=== PATIENT | female | born 1940 | race Caucasian/White ===

== ENCOUNTER 2017-06-23 15:47 | Inpatient (IN) | payer MEDICARE, MEDICAID ==
[2017-06-23 15:52] VITALS: BMI 25.4
--- NOTE | 2017-06-23 16:02 | C.PDOC ---
History Of Present Illness 77F biba for ams. she was found sitting down slumped forward outside of a [employer]. bg 27 in traige- pt given IV D50 and woke up immediately. she remembers taking her insulin tresiba but has not eaten since breakfast. she went to the pharmacy to hot die picker medications and then does not remember what happened after that. she has no complaints currently. Time Seen by Provider: 06/23/17 16:00 Chief Complaint (Nursing): Altered Mental Status Past Medical History Vital Signs: Last Vital Signs Temp 91.6 F L 06/23/17 16:37 Pulse 70 06/23/17 16:37 Resp 18 06/23/17 16:37 BP 162/69 H 06/23/17 16:37 Pulse Ox 99 06/23/17 16:37 - Medical History PMH: Dementia, Diabetes, HTN Surgical History: Appendectomy Family History: States: Other Other Family History: nc - Social History Hx Tobacco Use: No Hx Alcohol Use: No Hx Substance Use: No - Immunization History Hx Influenza Vaccination: Yes Hx Pneumococcal Vaccination: Yes Review Of Systems Constitutional: Negative for: Fever, Chills, Weakness, Malaise Eyes: Negative for: Vision Change Cardiovascular: Negative for: Chest Pain Respiratory: Negative for: Cough, Shortness of Breath Gastrointestinal: Negative for: Nausea, Vomiting, Abdominal Pain Genitourinary: Negative for: Dysuria Neurological: Negative for: Weakness, Numbness, Headache Physical Exam - Physical Exam Appears: Well, Non-toxic, No Acute Distress Skin: Warm, Dry Head: Atraumatic Eye(s): bilateral: PERRL, EOMI Nose: No Epistaxis Oral Mucosa: Moist Tongue: No Swelling Neck: Normal ROM Cardiovascular: Rhythm Regular Respiratory: No Decreased Breath Sounds, No Accessory Muscle Use, No Rales, No Rhonchi, No Stridor, No Wheezing Gastrointestinal/Abdominal: Soft, No Tenderness, No Distention Extremity: No Swelling Neurological/Psych: Oriented x3, Normal Cranial Nerves, Normal Motor, Normal Sensation, Other (no focal deficits) ED Course And Treatment - Laboratory Results Result Diagrams: 06/23/17 16:15 06/23/17 16:15 O2 Sat by Pulse Oximetry: 98 Medical Decision Making Medical Decision Makinpm pt hypoglycemic again. improved w D50. D5 gtt started. will admit. Disposition - Disposition Disposition: HOSPITALIZED Disposition Time: 18:01 Condition: STABLE Forms: [facility] (Welsh) - Clinical Impression Clinical Impression: Hypoglycemia
[2017-06-23 16:19] LABS: BASO # 0.1 K/uL (0.0-0.2); BASO % 0.7 % (0.0-2.0); EOS # 0.5 K/uL (0.0-0.7); EOS % 3.1 % (0.0-4.0); HEMOGLOBIN 12.1 g/dL (11.0-16.0); LYMPH # 2.9 K/uL (1.0-4.3); LYMPH % 16.1 % (20.0-40.0); MEAN CELL VOLUME 87.8 fL (81.0-99.0); MEAN CORPUSCULAR HEMOGLOBIN 28.1 pg (27.0-31.0); MEAN PLATELET VOLUME 9.4 fL (7.2-11.7); MONO # 1.3 K/uL (0.0-0.8); MONO % 7.4 % (0.0-10.0); NEUT # 12.9 K/uL (1.8-7.0); NEUT % 72.7 % (50.0-75.0); NRBC % 0.1 % (0.0-2.0); RBC 4.32 Mil/uL (3.80-5.20); RED CELL DISTRIBUTION WIDTH 14.5 % (11.5-14.5); WHITE BLOOD COUNT 17.7 K/uL (4.8-10.8)
[2017-06-23 16:41] LABS: ALB/GLOB RATIO 1.3 (1.0-2.1); ALT/SGPT 29 U/L (9-52); AST/SGOT 27 U/L (14-36); BLOOD UREA NITROGEN 18 mg/dL (7-17); CALCIUM 9.6 mg/dl (8.6-10.4); GFR AFRICAN-AMERICAN > 60; GFR NON-AFRICAN AMERICAN > 60
[2017-06-23] MEDS ORDERED: Dextrose 50% SYRINGE Inj (50 ml) IV STA (17:53)
[2017-06-23] MEDS ORDERED: Dextrose 50% VIAL Inj (50 ml) IV ONE (17:58)
[2017-06-23] MEDS: Dextrose 5%/0.9% NS 1,000 ML IV SCH (18:20)
[2017-06-23 21:04] LABS: BLOOD UREA NITROGEN 16 mg/dL (7-17); CALCIUM 9.4 mg/dl (8.6-10.4); GFR AFRICAN-AMERICAN > 60; GFR NON-AFRICAN AMERICAN 54
[2017-06-23] MEDS ORDERED: (Novolog) Insulin Aspart, Recombinant 100 u/ml 10 ml vial SC SCH (22:00)
[2017-06-24 04:14] LABS: SQUAMOUS EPITHIAL < 1 /hpf (0-5); URINE BILIRUBIN NEGATIVE (NEGATIVE); URINE BLOOD NEGATIVE (NEGATIVE); URINE CLARITY Clear (Clear); URINE COLOR Straw (YELLOW); URINE GLUCOSE (UA) 2+ mg/dL (Normal); URINE LEUKOCYTE ESTERASE NEG Leu/uL (Negative); URINE NITRATE NEGATIVE (NEGATIVE); URINE PROTEIN NEGATIVE (NEGATIVE); URINE UROBILINOGEN NORMAL mg/dL (0.2-1.0)
[2017-06-24] MEDS: Dextrose 5%/0.9% NS 1,000 ML IV SCH ×3 (06:27→17:24)
[2017-06-24 06:34] LABS: BASO # 0.1 K/uL (0.0-0.2); BASO % 0.8 % (0.0-2.0); EOS # 0.1 K/uL (0.0-0.7); EOS % 1.5 % (0.0-4.0); HEMOGLOBIN 11.2 g/dL (11.0-16.0); LYMPH # 2.1 K/uL (1.0-4.3); LYMPH % 22.7 % (20.0-40.0); MEAN CELL VOLUME 87.2 fL (81.0-99.0); MEAN CORPUSCULAR HEMOGLOBIN 29.4 pg (27.0-31.0); MEAN CORPUSCULAR HGB CONC 33.7 g/dL (33.0-37.0); MEAN PLATELET VOLUME 9.9 fL (7.2-11.7); MONO # 0.8 K/uL (0.0-0.8); MONO % 8.6 % (0.0-10.0); NEUT # 6.1 K/uL (1.8-7.0); NEUT % 66.4 % (50.0-75.0); RBC 3.82 Mil/uL (3.80-5.20); RED CELL DISTRIBUTION WIDTH 14.7 % (11.5-14.5); WHITE BLOOD COUNT 9.3 K/uL (4.8-10.8)
[2017-06-24] MEDS: (Novolog) Insulin Aspart, Recombinant 100 u/ml 10 ml vial SC SCH ×4 (07:08→21:16)
[2017-06-24 07:43] LABS: ALBUMIN 3.3 g/dL (3.5-5.0); ALT/SGPT 25 U/L (9-52); AST/SGOT 23 U/L (14-36); BLOOD UREA NITROGEN 16 mg/dL (7-17); CALCIUM 8.8 mg/dl (8.6-10.4); GFR AFRICAN-AMERICAN > 60; GFR NON-AFRICAN AMERICAN > 60; HDL CHOLESTEROL 31 mg/dL (30-70)
[2017-06-24 07:48] LABS: ALB/GLOB RATIO 1.3 (1.0-2.1)
--- NOTE | 2017-06-24 07:49 | RAD ---
HISTORY: hypoglycemia COMPARISON: Portable chest 04/01/2016. FINDINGS: LUNGS: No active pulmonary disease. PLEURA: No significant pleural effusion identified, no pneumothorax apparent. CARDIOVASCULAR: Upper limits normal cardiac silhouette. No pulmonary venous congestion evident. OSSEOUS STRUCTURES: No significant abnormalities. VISUALIZED UPPER ABDOMEN: Normal. OTHER FINDINGS: None. IMPRESSION: Upper limits normal cardiac silhouette. No pulmonary vascular congestion. No interval infiltrate, pleural effusion or pneumothorax identified.
[2017-06-24 07:54] LABS: LDL CHOLESTEROL 42 mg/dL (0-129)
[2017-06-24] MEDS: Enoxaparin 40 mg Syringe SC SCH (10:19)
--- NOTE | 2017-06-24 11:01 | CARD ---
APPROVED REPORT EKG Measurement Heart [id number] <Conclusion> Normal sinus rhythm Possible Left atrial enlargement Cannot rule out Anterior infarct, age undetermined Abnormal ECG
--- NOTE | 2017-06-24 12:16 | CON ---
DATE: ENDOCRINOLOGY CONSULTATION LOCATION: In room 652. HISTORY OF PRESENT ILLNESS: This is [id number] female with known history of type 2 insulin requiring diabetes, currently on Tresiba insulin and also metformin therapeutic, doses are not known at this time and presents here with loss of consciousness, apparently found in the [place] area, and glucose levels were actually below 20 mg/dL with dramatic response and awakening with the bolus injections of dextrose infusions as given. At the time of the evaluation, she has been unable to give the exact dosing of her Tresiba insulin pen dosing regimen at this time. She has also been taking metformin twice a day as noted. PAST MEDICAL HISTORY: As mentioned above, history of type 2 insulin requiring diabetes, on the combination therapy as mentioned, history of hypertension and dyslipidemia. There is an apparent history also of dementia, again the nature and the degree of dementia is not known at this time pending the family members' giving of details of above. FAMILY HISTORY: Positive for hypertension and diabetes. SOCIAL HISTORY: The patient has supportive family. No known substance use. REVIEW OF SYSTEMS: As mentioned above. Admits to sudden onset of generalized body weakness with severe bouts of dizziness and lightheadedness just prior to the syncope and the brief bouts of unresponsiveness. She admits to taking her insulin this morning and apparently did not have any meals thereafter, and has no recollection of exactly what happened after that event this morning. No chest pain, palpitation or PND. Her oral intake has been variable with occasional nausea, dyspepsia, and vague upper abdominal pains, also admits to habitual constipation. PHYSICAL EXAMINATION: GENERAL: This is an average-built female, in no apparent distress, awake at this time, also still slightly confused and hypersomnolent as noted. VITAL SIGNS: Blood pressure 160/90, pulse of 70 beats per minute and regular, temperature 94, respirations 20. Height is 4 feet 11 inches, weight is 125 pounds. HEENT: Head normocephalic. Eyes anicteric with pink conjunctivae. Funduscopy not possible at this time. Ears, nose, and throat otherwise normal. NECK: Supple. Thyroid gland is normal in size. No carotid bruits or any cervical adenopathy. CARDIOPULMONARY: Some adynamic precordium. S1 and S2 is rapid and regular. LUNGS: Clear to auscultation. ABDOMEN: Flat, soft with positive bowel sounds. EXTREMITIES: No peripheral edema, pulses are +2 bilaterally. LABORATORY DATA: Her CBC, WBC 17.7, hemoglobin of 12, hematocrit of 37, MCV 87, platelets 316. The initial glucose was less than 20 mg/dL. Chemistry showed a BUN of 16, sodium 135, potassium 4.4, chloride 99, CO2 of 26, glucose 80 and creatinine 1.0. The subsequent glucose is 96 mg/dL. Her hemoglobin A1c is 9.0%, which is really elevated and indicative of suboptimal metabolic control of her diabetic condition even prior to this admission despite the current insulin regimen and oral hypoglycemic therapy as given. ASSESSMENT: This is a 77-year-old female with symptomatic hypoglycemia presenting here with loss of consciousness and apparent omission of her meals today after the administration of Tresiba insulin pen as given and developed associated neuroglycopenic and hyperadrenergic manifestations on the same, reversed by D50 bolus injections and dextrose infusions as given. PLAN OF MANAGEMENT: We will continue the dextrose infusion overnight to observe her glycemic fluctuations thereof, and as her glucose levels evolve tomorrow, then we will start her back on a basal and bolus insulin drug combination to optimize metabolic control and/or basal insulin with oral hypoglycemic therapy as indicated. Only the supervening glycemic fluctuations will determine the need for the aforementioned modalities of treatment thereof. We will obtain serial chemistries and supplement accordingly as needed. Baseline thyroid studies and lipid panel will be ordered. With the apparent history of dementia, we will be very careful to actually give her multiple doses of insulin and we will give her a shorter acting basal insulin such as Levemir together with a combination of oral hypoglycemic therapy as dictated. We will follow and advise accordingly. Jaqueline Tamayo MD
--- NOTE | 2017-06-24 12:37 | CP.PCM.HP ---
History of Present Illness - History of Present Illness History of Present Illness: This is a 77 years old female with Past Medical History significant for Type II Diabetes Mellitus, Hypertension and Hyperlipidemia. Patient found unconscious outside [employer], brought to ER/Hospital for further evaluation. Patient immediately woke up after administration of D50% Dextrose. Patient states that she administered Novolog 10 units but forgot to eat. Patient denies headache, chest pain, shortness of breath, abdominal pain or diarrhea. Present on Admission - Present on Admission Any Indicators Present on Admission: Yes History of Uncontrolled Diabetes: Yes Past Patient History - Infectious Disease Hx of Infectious Diseases: None - Past Medical History & Family History Past Medical History?: Yes - Past Social History Smoking Status: Never Smoked - CARDIAC Hx Hypertension: Yes - PULMONARY Hx Respiratory Disorders: No - NEUROLOGICAL Hx Dementia: Yes - HEENT Hx Cataracts: Yes (both eyes) - RENAL Hx Chronic Kidney Disease: No - ENDOCRINE/METABOLIC Hx Diabetes Mellitus Type 2: Yes - HEMATOLOGICAL/ONCOLOGICAL Hx Blood Disorders: No - INTEGUMENTARY Hx Dermatological Problems: No - MUSCULOSKELETAL/RHEUMATOLOGICAL Hx Musculoskeletal Disorders: No Hx Falls: No - GASTROINTESTINAL Hx Gastrointestinal Disorders: No - GENITOURINARY/GYNECOLOGICAL Hx Genitourinary Disorders: No - PSYCHIATRIC Hx Psychophysiologic Disorder: No Hx Substance Use: No - SURGICAL HISTORY Hx Appendectomy: Yes - ANESTHESIA Hx Anesthesia: Yes Hx Anesthesia Reactions: No Hx Malignant Hyperthermia: No Has any member of the family had a problem w/ anesthesia?: No Meds Allergies/Adverse Reactions: Allergies Allergy/AdvReac Type Severity Reaction Status Date / Time No Known Allergies Allergy Verified 06/23/17 15:51 Physical Exam - Head Exam Head Exam: ATRAUMATIC, NORMAL INSPECTION, NORMOCEPHALIC - Eye Exam Eye Exam: EOMI, Normal appearance, PERRL - ENT Exam ENT Exam: Mucous Membranes Moist, Normal Exam - Neck Exam Neck exam: Positive for: Full Rom, Normal Inspection - Respiratory Exam Respiratory Exam: Clear to Auscultation Bilateral, NORMAL BREATHING PATTERN - Cardiovascular Exam Cardiovascular Exam: REGULAR RHYTHM, +S1, +S2 - GI/Abdominal Exam GI & Abdominal Exam: Normal Bowel Sounds, Soft - Extremities Exam Extremities exam: Positive for: full ROM, normal inspection - Back Exam Back exam: FULL ROM, NORMAL INSPECTION - Neurological Exam Neurological exam: Alert, CN II-XII Intact, Oriented x3 - Psychiatric Exam Psychiatric exam: Normal Affect, Normal Mood - Skin Skin Exam: Intact, Normal Color Results - Vital Signs Recent Vital Signs: Last Vital Signs Temp 97.7 F 06/24/17 08:28 Pulse 94 H 06/24/17 08:28 Resp 20 06/24/17 08:28 BP 158/83 H 06/24/17 08:28 Pulse Ox 97 06/24/17 08:28 - Labs Result Diagrams: 06/24/17 06:23 06/24/17 06:23 Labs: Laboratory Results - last 24 hr 06/23/17 06/23/17 06/23/17 15:47 15:52 16:15 WBC 17.7 H D RBC 4.32 Hgb 12.1 Hct 37.9 MCV 87.8 MCH 28.1 MCHC 32.0 L RDW 14.5 Plt Count 315 MPV 9.4 Neut % (Auto) 72.7 Lymph % (Auto) 16.1 L Camp % (Auto) 7.4 Eos % (Auto) 3.1 Baso % (Auto) 0.7 Neut # 12.9 H Lymph # 2.9 Camp # 1.3 H Eos # 0.5 Baso # 0.1 Sodium Potassium Chloride Carbon Dioxide Anion Gap BUN Creatinine Est GFR ( Amer) Est GFR (Non-Af Amer) POC Glucose (mg/dL) < 20 L* < 20 L* Random Glucose Hemoglobin A1c Calcium Total Bilirubin AST ALT Alkaline Phosphatase Total Protein Albumin Globulin Albumin/Globulin Ratio Triglycerides Cholesterol LDL Cholesterol Direct HDL Cholesterol 25-OH Vitamin D Total Thyroxine (T4) TSH 3rd Generation Cortisol AM Sample Urine Color Urine Clarity Urine pH Ur Specific Wiseman Urine Protein Urine Glucose (UA) Urine Ketones Urine Blood Urine Nitrate Urine Bilirubin Urine Urobilinogen Ur Leukocyte Esterase Urine WBC (Auto) Urine RBC (Auto) Ur Squamous Epith Cells 06/23/17 06/23/17 06/23/17 16:15 16:26 17:50 WBC RBC Hgb Hct MCV MCH MCHC RDW Plt Count MPV Neut % (Auto) Lymph % (Auto) Camp % (Auto) Eos % (Auto) Baso % (Auto) Neut # Lymph # Camp # Eos # Baso # Sodium 138 Potassium 3.8 Chloride 103 Carbon Dioxide 24 Anion Gap 15 BUN 18 H Creatinine 0.9 Est GFR ( Amer) > 60 Est GFR (Non-Af Amer) > 60 POC Glucose (mg/dL) 180 H < 20 L* Random Glucose 20 L* D Hemoglobin A1c Calcium 9.6 Total Bilirubin 0.4 AST 27 ALT 29 Alkaline Phosphatase 64 Total Protein 7.1 Albumin 4.0 Globulin 3.0 Albumin/Globulin Ratio 1.3 Triglycerides Cholesterol LDL Cholesterol Direct HDL Cholesterol 25-OH Vitamin D Total Thyroxine (T4) TSH 3rd Generation Cortisol AM Sample Urine Color Urine Clarity Urine pH Ur Specific Wiseman Urine Protein Urine Glucose (UA) Urine Ketones Urine Blood Urine Nitrate Urine Bilirubin Urine Urobilinogen Ur Leukocyte Esterase Urine WBC (Auto) Urine RBC (Auto) Ur Squamous Epith Cells 06/23/17 06/23/17 06/23/17 17:51 18:21 19:56 WBC RBC Hgb Hct MCV MCH MCHC RDW Plt Count MPV Neut % (Auto) Lymph % (Auto) Camp % (Auto) Eos % (Auto) Baso % (Auto) Neut # Lymph # Camp # Eos # Baso # Sodium Potassium Chloride Carbon Dioxide Anion Gap BUN Creatinine Est GFR ( Amer) Est GFR (Non-Af Amer) POC Glucose (mg/dL) < 20 L* 188 H 97 Random Glucose Hemoglobin A1c Calcium Total Bilirubin AST ALT Alkaline Phosphatase Total Protein Albumin Globulin Albumin/Globulin Ratio Triglycerides Cholesterol LDL Cholesterol Direct HDL Cholesterol 25-OH Vitamin D Total Thyroxine (T4) TSH 3rd Generation Cortisol AM Sample Urine Color Urine Clarity Urine pH Ur Specific Wiseman Urine Protein Urine Glucose (UA) Urine Ketones Urine Blood Urine Nitrate Urine Bilirubin Urine Urobilinogen Ur Leukocyte Esterase Urine WBC (Auto) Urine RBC (Auto) Ur Squamous Epith Cells 06/23/17 06/23/17 06/23/17 20:50 21:34 22:00 WBC RBC Hgb Hct MCV MCH MCHC RDW Plt Count MPV Neut % (Auto) Lymph % (Auto) Camp % (Auto) Eos % (Auto) Baso % (Auto) Neut # Lymph # Camp # Eos # Baso # Sodium 135 Potassium 4.4 Chloride 99 Carbon Dioxide 26 Anion Gap 14 BUN 16 Creatinine 1.0 Est GFR ( Amer) > 60 Est GFR (Non-Af Amer) 54 POC Glucose (mg/dL) 96 Random Glucose 80 Hemoglobin A1c 9.0 H Calcium 9.4 Total Bilirubin AST ALT Alkaline Phosphatase Total Protein Albumin Globulin Albumin/Globulin Ratio Triglycerides Cholesterol LDL Cholesterol Direct HDL Cholesterol 25-OH Vitamin D Total Thyroxine (T4) TSH 3rd Generation Cortisol AM Sample Urine Color Urine Clarity Urine pH Ur Specific Wiseman Urine Protein Urine Glucose (UA) Urine Ketones Urine Blood Urine Nitrate Urine Bilirubin Urine Urobilinogen Ur Leukocyte Esterase Urine WBC (Auto) Urine RBC (Auto) Ur Squamous Epith Cells 06/24/17 06/24/17 06/24/17 04:07 06:23 06:23 WBC 9.3 RBC 3.82 Hgb 11.2 Hct 33.3 L MCV 87.2 MCH 29.4 MCHC 33.7 RDW 14.7 H Plt Count 276 MPV 9.9 Neut % (Auto) 66.4 Lymph % (Auto) 22.7 Camp % (Auto) 8.6 Eos % (Auto) 1.5 Baso % (Auto) 0.8 Neut # 6.1 Lymph # 2.1 Camp # 0.8 Eos # 0.1 Baso # 0.1 Sodium 132 Potassium 4.1 Chloride 100 Carbon Dioxide 26 Anion Gap 10 BUN 16 Creatinine 0.9 Est GFR ( Amer) > 60 Est GFR (Non-Af Amer) > 60 POC Glucose (mg/dL) Random Glucose 241 H Hemoglobin A1c Calcium 8.8 Total Bilirubin 0.3 AST 23 ALT 25 Alkaline Phosphatase 57 Total Protein 5.9 L Albumin 3.3 L Globulin 2.6 Albumin/Globulin Ratio 1.3 Triglycerides 75 Cholesterol 94 LDL Cholesterol Direct 42 HDL Cholesterol 31 25-OH Vitamin D Total Thyroxine (T4) 8.50 TSH 3rd Generation 1.19 Cortisol AM Sample Urine Color Straw Urine Clarity Clear Urine pH 7.0 Ur Specific Wiseman 1.012 Urine Protein Negative Urine Glucose (UA) 2+ H Urine Ketones Negative Urine Blood Negative Urine Nitrate Negative Urine Bilirubin Negative Urine Urobilinogen Normal Ur Leukocyte Esterase Neg Urine WBC (Auto) 3 Urine RBC (Auto) < 1 Ur Squamous Epith Cells < 1 06/24/17 06/24/17 06/24/17 06:23 06:23 06:27 WBC RBC Hgb Hct MCV MCH MCHC RDW Plt Count MPV Neut % (Auto) Lymph % (Auto) Camp % (Auto) Eos % (Auto) Baso % (Auto) Neut # Lymph # Camp # Eos # Baso # Sodium Potassium Chloride Carbon Dioxide Anion Gap BUN Creatinine Est GFR ( Amer) Est GFR (Non-Af Amer) POC Glucose (mg/dL) 226 H Random Glucose Hemoglobin A1c Calcium Total Bilirubin AST ALT Alkaline Phosphatase Total Protein Albumin Globulin Albumin/Globulin Ratio Triglycerides Cholesterol LDL Cholesterol Direct HDL Cholesterol 25-OH Vitamin D Total 26.8 L Thyroxine (T4) TSH 3rd Generation Cortisol AM Sample 9.9 Urine Color Urine Clarity Urine pH Ur Specific Wiseman Urine Protein Urine Glucose (UA) Urine Ketones Urine Blood Urine Nitrate Urine Bilirubin Urine Urobilinogen Ur Leukocyte Esterase Urine WBC (Auto) Urine RBC (Auto) Ur Squamous Epith Cells 06/24/17 11:07 WBC RBC Hgb Hct MCV MCH MCHC RDW Plt Count MPV Neut % (Auto) Lymph % (Auto) Camp % (Auto) Eos % (Auto) Baso % (Auto) Neut # Lymph # Camp # Eos # Baso # Sodium Potassium Chloride Carbon Dioxide Anion Gap BUN Creatinine Est GFR ( Amer) Est GFR (Non-Af Amer) POC Glucose (mg/dL) 349 H Random Glucose Hemoglobin A1c Calcium Total Bilirubin AST ALT Alkaline Phosphatase Total Protein Albumin Globulin Albumin/Globulin Ratio Triglycerides Cholesterol LDL Cholesterol Direct HDL Cholesterol 25-OH Vitamin D Total Thyroxine (T4) TSH 3rd Generation Cortisol AM Sample Urine Color Urine Clarity Urine pH Ur Specific Wiseman Urine Protein Urine Glucose (UA) Urine Ketones Urine Blood Urine Nitrate Urine Bilirubin Urine Urobilinogen Ur Leukocyte Esterase Urine WBC (Auto) Urine RBC (Auto) Ur Squamous Epith Cells Assessment & Plan (1) Hypoglycemia Status: Resolved Priority: High (2) Diabetes mellitus type 2 in nonobese Assessment and Plan: HgbA1C. Endocrinology evaluation. Continue same treatment. Status: Acute Priority: High (3) Hypertension Assessment and Plan: Continue same treatment. Status: Acute Priority: High
[2017-06-24] MEDS ORDERED: (Lantus) Insulin Glargine, Recombinant SC SCH (22:00)
[2017-06-24] MEDS: Sodium Chloride 0.45% 1,000 ML IV SCH (23:05)
--- NOTE | 2017-06-25 01:39 | PN ---
DATE: ENDOCRINOLOGY FOLLOWUP NOTE LOCATION: Room 652. SUBJECTIVE: This is a 77-year-old female with known history of type 2 insulin-requiring diabetes, currently on a long acting insulin called Tresiba with supervening symptomatic hypoglycemia and a brief bout of unconsciousness, and is now being followed closely for metabolic management. She also with associated neuroglycopenic and hyperadrenergic manifestations on the same, which were reversed by D50 bolus injections and dextrose infusions as given and noted. Her oral intake has improved all day today with glucose levels ranging from 262 to 341 and 349 mg/dL. Her serum cortisol level was 9.9 with a TSH of 1.19 and T4 of 8.50. The latest chemistry showed a BUN of 16, sodium 132, potassium 4.1, chloride 100, CO2 of 26, glucose 241, and creatinine 0.9. Her hemoglobin A1c is elevated at 9.0%. So, at this time we will start her on basal insulin tonight with Lantus given as 10 units subcu at bedtime daily to be given tonight. We will also add oral hypoglycemic therapy with Januvia given as 50 mg once daily in the morning and Amaryl given as 2 mg p.o. b.i.d. before meals as ordered. We will titrate incrementally as indicated to optimize metabolic control. We will also discontinue her dextrose infusion as given and observe the true extent of her glycemic fluctuations thereof. We will also switch her IVs over to half normal saline at 75 mL per hour as ordered. We will obtain serial chemistries and supplement accordingly as needed. We will follow and advise accordingly. Jaqueline Tamayo MD
[2017-06-25] MEDS: (Novolog) Insulin Aspart, Recombinant 100 u/ml 10 ml vial SC SCH ×4 (07:35→21:15)
[2017-06-25] MEDS: Enoxaparin 40 mg Syringe SC SCH (10:05)
[2017-06-25] MEDS: Sodium Chloride 0.45% 1,000 ML IV SCH (12:34)
--- NOTE | 2017-06-25 19:06 | CP.PCM.PN ---
Subjective - Date & Time of Evaluation Date of Evaluation: 06/25/17 Time of Evaluation: 19:04 - Subjective Subjective: Patient has no new complaints. Objective - Vital Signs/Intake and Output Vital Signs (last 24 hours): Temp Pulse Resp BP Pulse Ox 97.8 F 72 18 131/67 97 06/25/17 15:30 06/25/17 16:00 06/25/17 15:30 06/25/17 15:30 06/25/17 15:30 - Medications Medications: Current Medications Amlodipine Besylate (Norvasc) 5 mg PO DAILY [facility] Last Admin: 06/25/17 10:04 Dose: 5 mg Carvedilol (Coreg) 6.25 mg PO BID [facility] Last Admin: 06/25/17 17:15 Dose: 6.25 mg Enoxaparin Sodium (Lovenox) 40 mg SC DAILY [facility] Last Admin: 06/25/17 10:05 Dose: 40 mg Glimepiride (Amaryl) 4 mg PO ACBD [facility] Hydrochlorothiazide (Hydrodiuril) 25 mg PO DAILY [facility] Last Admin: 06/25/17 10:04 Dose: 25 mg Sodium Chloride (Sodium Chloride 0.45%) 1,000 mls @ 75 mls/hr IV .[id number] [facility] Last Admin: 06/25/17 12:34 Dose: Not Given Insulin Aspart (Novolog) 0 unit SC [facility] PRN Reason: Protocol Last Admin: 06/25/17 17:15 Dose: 2 unit Insulin Glargine (Lantus) 20 unit SC [facility] Losartan Potassium (Cozaar) 50 mg PO DAILY [facility] Last Admin: 06/25/17 10:05 Dose: 50 mg Rosuvastatin Calcium (Crestor) 5 mg PO [facility] Last Admin: 06/24/17 21:10 Dose: 5 mg Sitagliptin Phosphate (Januvia) 100 mg PO DAILY [facility] - Labs Labs: 06/24/17 06:23 06/24/17 06:23 - Constitutional Appears: Well, Non-toxic - Head Exam Head Exam: ATRAUMATIC, NORMAL INSPECTION, NORMOCEPHALIC - Neck Exam Neck Exam: Full ROM, Normal Inspection - Respiratory Exam Respiratory Exam: Clear to Ausculation Bilateral, NORMAL BREATHING PATTERN - Cardiovascular Exam Cardiovascular Exam: REGULAR RHYTHM, +S1, +S2 - GI/Abdominal Exam GI & Abdominal Exam: Soft, Normal Bowel Sounds - Extremities Exam Extremities Exam: Full ROM, Normal Capillary Refill, Normal Inspection - Back Exam Back Exam: Full ROM, NORMAL INSPECTION - Neurological Exam Neurological Exam: Alert, Awake, CN II-XII Intact, Normal Gait, Oriented x3 - Skin Skin Exam: Intact Assessment and Plan (1) Diabetes mellitus type 2 in nonobese Assessment & Plan: Continue same treatment. Status: Acute (2) Hypertension Assessment & Plan: Continue same treatment. Status: Acute (3) Hypoglycemia Assessment & Plan: Improved. Endocrine on board. Status: Resolved
[2017-06-25] MEDS ORDERED: (Lantus) Insulin Glargine, Recombinant SC SCH (22:00)
[2017-06-26] MEDS: Sodium Chloride 0.45% 1,000 ML IV SCH ×3 (01:33→15:43)
--- NOTE | 2017-06-26 06:09 | PN ---
DATE ENDOCRINOLOGY FOLLOWUP NOTE LOCATION: Room 652. SUBJECTIVE: This is a 77-year-old female presenting here with symptomatic hypoglycemia and associated neuroglycopenic and hyperadrenergic manifestation of the same, and now has supervening hyperglycemic accelerations as noted thereof. OBJECTIVE: Her glucose levels today have ranged from 257 to 359 mg/dL. It was 341 at bedtime last night. The latest chemistry showed a BUN of 16, sodium 132, potassium 4.1, chloride 100, CO2 of 26, glucose 241, and creatinine 0.9. ASSESSMENT AND PLAN: So, at this time, we will modify once again her basal insulin and increase the Lantus to 20 units subcutaneous at bedtime daily to start tonight. We will increase her oral hypoglycemic therapy with Amaryl to be given as 4 mg b.i.d. before meals to start tomorrow morning as ordered. We will also increase the Januvia given as 100 mg once daily at 10 a.m. as ordered. We will continue the low-dose correction scale using NovoLog insulin as ordered. We will also continue the IV hydration and obtain serial chemistries accordingly. We will follow with you. Jaqueline Tamayo MD
[2017-06-26] MEDS: (Novolog) Insulin Aspart, Recombinant 100 u/ml 10 ml vial SC SCH ×4 (08:35→22:19)
[2017-06-26] MEDS: Enoxaparin 40 mg Syringe SC SCH (09:45)
--- NOTE | 2017-06-26 10:36 | CP.PCM.PN ---
Subjective - Date & Time of Evaluation Date of Evaluation: 06/26/17 Time of Evaluation: 10:34 - Subjective Subjective: Patient has no new complaints. Objective - Vital Signs/Intake and Output Vital Signs (last 24 hours): Temp Pulse Resp BP Pulse Ox 97.9 F 65 20 145/72 98 06/26/17 07:20 06/26/17 07:20 06/26/17 07:20 06/26/17 07:20 06/26/17 07:20 Intake and Output: 06/26/17 06/26/17 06:59 18:59 Intake Total 600 Balance 600 - Medications Medications: Current Medications Amlodipine Besylate (Norvasc) 5 mg PO DAILY [facility] Last Admin: 06/26/17 09:46 Dose: 5 mg Carvedilol (Coreg) 6.25 mg PO BID [facility] Last Admin: 06/26/17 09:46 Dose: 6.25 mg Enoxaparin Sodium (Lovenox) 40 mg SC DAILY [facility] Last Admin: 06/26/17 09:45 Dose: 40 mg Glimepiride (Amaryl) 4 mg PO ACBD [facility] Last Admin: 06/26/17 08:15 Dose: 4 mg Hydrochlorothiazide (Hydrodiuril) 25 mg PO DAILY [facility] Last Admin: 06/26/17 09:46 Dose: 25 mg Sodium Chloride (Sodium Chloride 0.45%) 1,000 mls @ 75 mls/hr IV .[id number] [facility] Last Admin: 06/25/17 12:34 Dose: Not Given Insulin Aspart (Novolog) 0 unit SC [facility] PRN Reason: Protocol Last Admin: 06/26/17 08:35 Dose: 2 unit Insulin Glargine (Lantus) 20 unit SC [facility] Last Admin: 06/25/17 21:15 Dose: 20 units Losartan Potassium (Cozaar) 50 mg PO DAILY [facility] Last Admin: 06/26/17 09:46 Dose: 50 mg Rosuvastatin Calcium (Crestor) 5 mg PO [facility] Last Admin: 06/25/17 21:14 Dose: 5 mg Sitagliptin Phosphate (Januvia) 100 mg PO DAILY [facility] Last Admin: 06/26/17 09:49 Dose: 100 mg - Labs Labs: 06/24/17 06:23 06/24/17 06:23 - Head Exam Head Exam: ATRAUMATIC, NORMAL INSPECTION, NORMOCEPHALIC - Neck Exam Neck Exam: Full ROM, Normal Inspection - Respiratory Exam Respiratory Exam: Clear to Ausculation Bilateral, NORMAL BREATHING PATTERN - Cardiovascular Exam Cardiovascular Exam: REGULAR RHYTHM, +S1, +S2 - GI/Abdominal Exam GI & Abdominal Exam: Soft, Normal Bowel Sounds - Extremities Exam Extremities Exam: Full ROM, Normal Capillary Refill, Normal Inspection - Back Exam Back Exam: NORMAL INSPECTION - Neurological Exam Neurological Exam: Alert, Awake, Normal Gait, Oriented x3 - Psychiatric Exam Psychiatric exam: Normal Affect, Normal Mood Assessment and Plan (1) Diabetes mellitus type 2 in nonobese Assessment & Plan: Continue same treatment. Status: Acute (2) Hypertension Assessment & Plan: Continue same treatment. Status: Acute (3) Hypoglycemia Status: Resolved
[2017-06-26] MEDS ORDERED: (Lantus) Insulin Glargine, Recombinant SC SCH (22:00)
--- NOTE | 2017-06-26 23:22 | PN ---
DATE: ENDOCRINOLOGY FOLLOWUP NOTE LOCATION: Room 652. SUBJECTIVE: This is a 77-year-old female with recent uncontrolled type 2 insulin-requiring diabetes, presenting with symptomatic hypoglycemia and associated neuroglycopenic and hyperadrenergic manifestations reversed by D50 bolus injections and dextrose infusion as given initially on admission. At this time, her oral intake has improved with supervening hyperglycemic accelerations as noted and glucose values today have ranged from 256 to 378 mg/dL. Her bedtime glucose was 343, which is really quite elevated at this time. The latest chemistry showed a BUN of 16, sodium 132, potassium 4.1, chloride 100, CO2 of 26, glucose 241, and creatinine 0.9. Because of her memory lapses and variability of her oral intake, I am really quite hesitant to give her a more aggressive insulin drug combination with four insulin doses daily, again to obviate hypoglycemic episodes. So, we have actually maximized her oral hypoglycemic therapy with Januvia given as 100 mg daily and Amaryl at 4 mg b.i.d. before meals. Would hold off on the metformin not only because of the advanced age of the patient but also because of her lower GFR, even with normal creatinine levels. We will continue the Lantus given at a higher dose of 30 units subcu at bedtime daily to start tonight as ordered. We will continue the very low-dose correction scale using NovoLog insulin as given. We will obtain serial chemistries and supplement accordingly as needed. We will follow this. Jaqueline Tamayo MD
[2017-06-27] MEDS: Sodium Chloride 0.45% 1,000 ML IV SCH ×4 (01:47→18:11)
[2017-06-27] MEDS: (Novolog) Insulin Aspart, Recombinant 100 u/ml 10 ml vial SC SCH ×3 (07:02→16:50)
[2017-06-27 07:53] LABS: ALB/GLOB RATIO 1.2 (1.0-2.1); ALBUMIN 3.4 g/dL (3.5-5.0); ALT/SGPT 35 U/L (9-52); AST/SGOT 27 U/L (14-36); BLOOD UREA NITROGEN 20 mg/dL (7-17); GFR AFRICAN-AMERICAN > 60; GFR NON-AFRICAN AMERICAN 54
[2017-06-27 08:37] VITALS: PULSE 70; TEMP 98.2
[2017-06-27] MEDS: Enoxaparin 40 mg Syringe SC SCH (10:07)
--- NOTE | 2017-06-27 15:42 | CP.PCM.PN ---
Subjective - Date & Time of Evaluation Date of Evaluation: 06/27/17 Time of Evaluation: 15:39 - Subjective Subjective: PT SEEN THIS AFTERNOON AND STABLE. FARZANEH AT BEDSIDE. THEY ARE BOTH EAGER FOR HER TO GO HOME. I DISCUSSED WITH DR. DA SILVA HER PLAN AND RECOMMENDATIONS. PER DR. DA SILVA PT MAY BE D/C HOME TODAY WITH RX FOR: AMARYL 4 MG PO ACBD, JANUVIA 100 MG PO DAILY, AND LANTUS 30 UNITS SQ Q HS; D/C METFORMIN THAT IS BEING TAKEN AT HOME. DR. AGUILA MADE AWARE OF DR. DA SILVA'S CLEARING PT; HE WILL SEE HER THIS AFTERNOON DURING ROUNDS AND D/C HER HOME. PT AND GRANDSON MADE AWARE. NO FURTHER ORDERS. Objective - Vital Signs/Intake and Output Vital Signs (last 24 hours): Temp Pulse Resp BP Pulse Ox 98.2 F 70 18 147/75 96 06/27/17 08:36 06/27/17 08:36 06/27/17 08:36 06/27/17 08:36 06/27/17 08:36 Intake and Output: 06/27/17 06/27/17 06:59 18:59 Intake Total 400 Balance 400 - Medications Medications: Current Medications Amlodipine Besylate (Norvasc) 5 mg PO DAILY [facility] Last Admin: 06/27/17 10:07 Dose: 5 mg Carvedilol (Coreg) 6.25 mg PO BID [facility] Last Admin: 06/27/17 10:07 Dose: 6.25 mg Enoxaparin Sodium (Lovenox) 40 mg SC DAILY [facility] Last Admin: 06/27/17 10:07 Dose: 40 mg Glimepiride (Amaryl) 4 mg PO ACBD [facility] Last Admin: 06/27/17 07:52 Dose: 4 mg Hydrochlorothiazide (Hydrodiuril) 25 mg PO DAILY [facility] Last Admin: 06/27/17 10:07 Dose: 25 mg Sodium Chloride (Sodium Chloride 0.45%) 1,000 mls @ 75 mls/hr IV .[id number] [facility] Last Admin: 06/27/17 15:05 Dose: 75 mls/hr Insulin Aspart (Novolog) 0 unit SC ACHS [facility] PRN Reason: Protocol Last Admin: 06/27/17 12:09 Dose: 2 unit Insulin Glargine (Lantus) 30 unit SC HS [facility] Last Admin: 06/26/17 22:15 Dose: 30 u Losartan Potassium (Cozaar) 50 mg PO DAILY [facility] Last Admin: 06/27/17 10:07 Dose: 50 mg Rosuvastatin Calcium (Crestor) 5 mg PO [facility] Last Admin: 06/26/17 22:16 Dose: 5 mg Sitagliptin Phosphate (Januvia) 100 mg PO DAILY [facility] Last Admin: 06/27/17 10:07 Dose: 100 mg - Labs Labs: 06/24/17 06:23 06/27/17 06:58
[2017-06-27 16:47] VITALS: BP 134/64; RESP 20; O2SAT 97
--- NOTE | 2017-06-27 19:38 | PN ---
DATE: ENDOCRINOLOGY FOLLOWUP NOTE LOCATION: Room 652. SUBJECTIVE: This is a 77-year-old female with recent uncontrolled type 2 insulin-requiring diabetes, now being followed closely for metabolic management. She presented here with hyperglycemic accelerations and is now improving clinically and metabolically as noted thereof. The initial presentation was actually symptomatic hypoglycemia with associated neuroglycopenic and hyperadrenergic manifestations, reversed by D50 bolus injections and dextrose infusion as noted. PLAN OF MANAGEMENT: As discussed with the nurse practitioner and staff prior to eventual discharge today, we would recommend only one basal insulin at bedtime with Lantus given as 30 units subcu at bedtime daily to start tonight. We will continue the dual oral hypoglycemic drug therapy. We will obtain serial chemistries and supplement accordingly as needed. We will follow. Jaqueline Tamayo MD
--- NOTE | 2017-06-27 19:58 | CP.PCM.DIS ---
Provider - Provider Date of Admission: 06/23/17 18:05 Attending physician: Иван Centeno MD Time Spent in preparation of Discharge (in minutes): 30 Diagnosis - Discharge Diagnosis (1) Diabetes mellitus type 2 in nonobese Status: Acute Priority: High (2) Hypertension Status: Acute Priority: High (3) Hypoglycemia Status: Resolved Priority: High Hospital Course - Lab Results Lab Results: Most Recent Lab Values WBC 9.3 K/uL (4.8-10.8) 06/24/17 06:23 RBC 3.82 Mil/uL (3.80-5.20) 06/24/17 06:23 Hgb 11.2 g/dL (11.0-16.0) 06/24/17 06:23 Hct 33.3 % (34.0-47.0) L 06/24/17 06:23 MCV 87.2 fL (81.0-99.0) 06/24/17 06:23 MCH 29.4 pg (27.0-31.0) 06/24/17 06:23 MCHC 33.7 g/dL (33.0-37.0) 06/24/17 06:23 RDW 14.7 % (11.5-14.5) H 06/24/17 06:23 Plt Count 276 K/uL (130-400) 06/24/17 06:23 MPV 9.9 fL (7.2-11.7) 06/24/17 06:23 Neut % (Auto) 66.4 % (50.0-75.0) 06/24/17 06:23 Lymph % (Auto) 22.7 % (20.0-40.0) 06/24/17 06:23 Kay % (Auto) 8.6 % (0.0-10.0) 06/24/17 06:23 Eos % (Auto) 1.5 % (0.0-4.0) 06/24/17 06:23 Baso % (Auto) 0.8 % (0.0-2.0) 06/24/17 06:23 Neut # 6.1 K/uL (1.8-7.0) 06/24/17 06:23 Lymph # 2.1 K/uL (1.0-4.3) 06/24/17 06:23 Kay # 0.8 K/uL (0.0-0.8) 06/24/17 06:23 Eos # 0.1 K/uL (0.0-0.7) 06/24/17 06:23 Baso # 0.1 K/uL (0.0-0.2) 06/24/17 06:23 Sodium 133 mmol/L (132-148) 06/27/17 06:58 Potassium 4.0 mmol/L (3.6-5.2) 06/27/17 06:58 Chloride 100 mmol/L (98-107) 06/27/17 06:58 Carbon Dioxide 25 mmol/L (22-30) 06/27/17 06:58 Anion Gap 13 (10-20) 06/27/17 06:58 BUN 20 mg/dL (7-17) H 06/27/17 06:58 Creatinine 1.0 mg/dL (0.7-1.2) 06/27/17 06:58 Est GFR ( Amer) > 60 06/27/17 06:58 Est GFR (Non-Af Amer) 54 06/27/17 06:58 POC Glucose (mg/dL) 241 mg/dL (65-110) H 06/27/17 16:19 Random Glucose 222 mg/dL (65-105) H 06/27/17 06:58 Hemoglobin A1c 9.0 % (4.2-6.5) H 06/23/17 22:00 Calcium 9.0 mg/dl (8.6-10.4) 06/27/17 06:58 Total Bilirubin 0.3 mg/dL (0.2-1.3) 06/27/17 06:58 AST 27 U/L (14-36) 06/27/17 06:58 ALT 35 U/L (9-52) 06/27/17 06:58 Alkaline Phosphatase 58 U/L (38-126) 06/27/17 06:58 Total Protein 6.3 g/dL (6.3-8.3) 06/27/17 06:58 Albumin 3.4 g/dL (3.5-5.0) L 06/27/17 06:58 Globulin 2.9 gm/dL (2.2-3.9) 06/27/17 06:58 Albumin/Globulin Ratio 1.2 (1.0-2.1) 06/27/17 06:58 Triglycerides 75 mg/dL (0-149) 06/24/17 06:23 Cholesterol 94 mg/dL (0-199) 06/24/17 06:23 LDL Cholesterol Direct 42 mg/dL (0-129) 06/24/17 06:23 HDL Cholesterol 31 mg/dL (30-70) 06/24/17 06:23 25-OH Vitamin D Total 26.8 NG/ML (30.0-100.0) L 06/24/17 06:23 Thyroxine (T4) 8.50 ug/dL (5.5-11.0) 06/24/17 06:23 TSH 3rd Generation 1.19 mIU/L (0.46-4.68) 06/24/17 06:23 Cortisol AM Sample 9.9 ug/dL (4.46-22.7) 06/24/17 06:23 Urine Color Straw (YELLOW) 06/24/17 04:07 Urine Clarity Clear (Clear) 06/24/17 04:07 Urine pH 7.0 (5.0-8.0) 06/24/17 04:07 Ur Specific [place] 1.012 (1.003-1.030) 06/24/17 04:07 Urine Protein Negative mg/dL (NEGATIVE) 06/24/17 04:07 Urine Glucose (UA) 2+ mg/dL (Normal) H 06/24/17 04:07 Urine Ketones Negative mg/dL (NEGATIVE) 06/24/17 04:07 Urine Blood Negative (NEGATIVE) 06/24/17 04:07 Urine Nitrate Negative (NEGATIVE) 06/24/17 04:07 Urine Bilirubin Negative (NEGATIVE) 06/24/17 04:07 Urine Urobilinogen Normal mg/dL (0.2-1.0) 06/24/17 04:07 Ur Leukocyte Esterase Neg Jillian/uL (Negative) 06/24/17 04:07 Urine WBC (Auto) 3 /hpf (0-5) 06/24/17 04:07 Urine RBC (Auto) < 1 /hpf (0-3) 06/24/17 04:07 Ur Squamous Epith Cells < 1 /hpf (0-5) 06/24/17 04:07 - Hospital Course Hospital Course: 77 years old female with PMHx significant for HTN, Type II DM and Hyperlipidemia. Patient admitted for evaluation of Syncope and Hypoglycemia. Hypoglycemia resolved. Discontinue Metformin. Discontinue Novolog. Start Januvia 100 mg PO QD. Start Glimiperide 4 mg PO BID with meals as per Endocrinology. - Date & Time of H&P Date of H&P: 06/27/17 Time of H&P: 19:58 Discharge Exam - Head Exam Head Exam: ATRAUMATIC, NORMAL INSPECTION, NORMOCEPHALIC - Eye Exam Eye Exam: EOMI, Normal appearance, PERRL - Respiratory Exam Respiratory Exam: Clear to PA & Lateral, NORMAL BREATHING PATTERN, UNREMARKABLE - Cardiovascular Exam Cardiovascular Exam: REGULAR RHYTHM, +S1, +S2 - GI/Abdominal Exam GI & Abdominal Exam: Normal Bowel Sounds, Unremarkable - Extremities Exam Extremities exam: full ROM - Back Exam Back exam: FULL ROM, NORMAL INSPECTION - Neurological Exam Neurological exam: Alert, CN II-XII Intact, Normal Gait, Oriented x3 - Psychiatric Exam Psychiatric exam: Normal Affect, Normal Mood - Skin Skin Exam: Dry, Intact Discharge Plan - Discharge Medications Prescriptions: Glimepiride [amaRYL] 4 mg PO ACBD #30 tab SITagliptin [Januvia] 100 mg PO DAILY #30 tab - Follow Up Plan Condition: STABLE Disposition: HOME/ ROUTINE Instructions: Heart Healthy Diet (DC), Diabetic Hypoglycemia (DC), Diabetes Mellitus Type 2 in Adults (DC), Basic Carbohydrate Counting (DC), Meal Planning with the Plate Method (DC), Hypertension (DC) Referrals: Иван Centeno MD [Staff Provider] - Jaqueline Tamayo MD [Medical Doctor] -
== END 2017-06-27 20:30 | disposition home or self-care (01) | DRG 639 ==
LOC: C.ER 15:47 → C.9E 18:05 → C.6T 19:03
PROVIDERS: ADMIT Internal Medicine; ATTEND Internal Medicine
DX: E11.641 Type 2 diabetes mellitus with hypoglycemia with coma (principal); E11.65 Type 2 diabetes mellitus with hyperglycemia; F03.90 Unspecified dementia, unspecified severity, without behavioral disturbance, psychotic disturbance, mood disturbance, and anxiety; I10 Essential (primary) hypertension; Z79.4 Long term (current) use of insulin; E78.5 Hyperlipidemia, unspecified

== ENCOUNTER 2017-07-13 13:26 | Inpatient (IN) | payer MEDICARE, MEDICAID ==
[2017-07-13 13:27] VITALS: BMI 25.4
[2017-07-13] MEDS ORDERED: Sodium Chloride 0.9% 1,000 ML IV STA (14:56)
--- NOTE | 2017-07-13 15:06 | C.PDOC ---
History Of Present Illness 77 y/o female, with history of HTN,diabetes, and hyperlipidemia, presents to the ER complaining of subjective fever, non-productive cough, body aches, and generalized weakness which has been present for the past 4 days. Patient states that she was previously seen by her PCP, , who prescribed her Tamiflu and Zithromycin.However, patient reports that she continues to feel weak at home so she came to the ER with her grandson. Patient denies chills, chest pain , SOB, abdominal pain, nausea, vomiting, diarrhea, and dysuria. Time Seen by Provider: 07/13/17 14:32 Chief Complaint (Nursing): Flu-like Symptoms History Per: Patient History/Exam Limitations: no limitations Onset/Duration Of Symptoms: Days Current Symptoms Are (Timing): Still Present Associated Symptoms: Fever, Cough. denies: Chills, Nausea, Vomiting, Diarrhea Severity: Moderate Past Medical History Reviewed: Historical Data, Nursing Documentation, Vital Signs Vital Signs: Last Vital Signs Temp 98.0 F 07/13/17 14:21 Pulse 58 L 07/13/17 14:44 Resp 20 07/13/17 14:44 BP 96/47 L 07/13/17 14:44 Pulse Ox 95 07/13/17 15:13 - Medical History PMH: Dementia, Diabetes, HTN Denies: Chronic Kidney Disease Surgical History: Appendectomy Family History: States: No Known Family Hx - Social History Hx Tobacco Use: No Hx Alcohol Use: No Hx Substance Use: No - Immunization History Hx Tetanus Toxoid Vaccination: Yes Hx Influenza Vaccination: Yes Hx Pneumococcal Vaccination: Yes Review Of Systems Except As Marked, All Systems Reviewed And Found Negative. Constitutional: Positive for: Fever, Weakness, Malaise. Negative for: Chills Cardiovascular: Negative for: Chest Pain Respiratory: Positive for: Cough. Negative for: Shortness of Breath Gastrointestinal: Negative for: Nausea, Vomiting, Abdominal Pain, Diarrhea Genitourinary: Negative for: Dysuria Physical Exam - Physical Exam Additional Physical Exam Comments: Constitutional: No acute distress. Elderly, weak appearing female. Head: Normocephalic. Atraumatic. Eyes: Sunken eyes.PERRL. ENT: Dry mucous membranes. Neck: Supple. Cardiovascular: Regular rate. Radial pulse 2+ bilaterally. Chest: No tenderness. Respiratory: Clear to auscultation bilaterally. GI: Soft. Nontender. Nondistended. Back: No CVA tenderness. Musculoskeletal: No tenderness or swelling of extremities. Skin: Pale.No rash. Neurologic: Alert, no focal deficit. ED Course And Treatment - Laboratory Results Result Diagrams: 07/13/17 15:05 07/13/17 15:05 O2 Sat by Pulse Oximetry: 95 (RA) Pulse Ox Interpretation: Normal Medical Decision Making Medical Decision Making: Plan: --Labs --CXR --Flu Swab --UA Influenza positive. Patient with dehydration on chemistry. Will benefit from further in hospital hydration. Dr. Centeno accepts to his service. CXR shows minimal atelectasis, no consolidation. Disposition Discussed With : Иван Centeno Doctor Will See Patient In The: Hospital - Disposition Disposition: HOSPITALIZED Disposition Time: 15:59 Condition: FAIR Forms: [facility] (Tanzanian) - Clinical Impression Clinical Impression: Influenza, Dehydration - Scribe Statement The provider has reviewed the documentation as recorded by the Mushtaq Latif Provider Attestation: All medical record entries made by the Mushtaq were at my direction and personally dictated by me. I have reviewed the chart and agree that the record accurately reflects my personal performance of the history, physical exam, medical decision making, and the department course for this patient. I have also personally directed, reviewed, and agree with the discharge instructions and disposition.
[2017-07-13 15:09] LABS: BASO # 0.1 K/uL (0.0-0.2); BASO % 0.8 % (0.0-2.0); EOS # 0.1 K/uL (0.0-0.7); EOS % 1.4 % (0.0-4.0); HEMOGLOBIN 11.6 g/dL (11.0-16.0); LYMPH # 1.8 K/uL (1.0-4.3); LYMPH % 20.4 % (20.0-40.0); MEAN CELL VOLUME 87.1 fL (81.0-99.0); MEAN CORPUSCULAR HEMOGLOBIN 29.5 pg (27.0-31.0); MEAN CORPUSCULAR HGB CONC 33.9 g/dL (33.0-37.0); MEAN PLATELET VOLUME 10.4 fL (7.2-11.7); NEUT # 5.7 K/uL (1.8-7.0); NEUT % 65.4 % (50.0-75.0); RBC 3.93 Mil/uL (3.80-5.20); RED CELL DISTRIBUTION WIDTH 14.8 % (11.5-14.5); WHITE BLOOD COUNT 8.7 K/uL (4.8-10.8)
[2017-07-13 15:36] LABS: ALB/GLOB RATIO 1.2 (1.0-2.1); ALBUMIN 3.8 g/dL (3.5-5.0); CALCIUM 9.2 mg/dl (8.6-10.4)
--- NOTE | 2017-07-13 15:57 | RAD ---
HISTORY: cough COMPARISON: Chest x-ray performed 06/23/17 TECHNIQUE: Chest, one view. FINDINGS: LUNGS: Minimal bibasilar atelectasis. No focal consolidation. Please note that chest x-ray has limited sensitivity for the detection of pulmonary masses. PLEURA: No significant pleural effusion identified. No definite pneumothorax . CARDIOVASCULAR: Cardiac size appears top normal. OSSEOUS STRUCTURES: Osseous demineralization. Degenerative changes of the shoulders and spine. Acromioclavicular arthropathy. VISUALIZED UPPER ABDOMEN: Unremarkable. OTHER FINDINGS: None. IMPRESSION: Minimal bibasilar atelectasis.
[2017-07-13 16:53] LABS: SQUAMOUS EPITHIAL 2 /hpf (0-5); URINE BILIRUBIN NEGATIVE (NEGATIVE); URINE BLOOD NEGATIVE (NEGATIVE); URINE CLARITY Hazy (Clear); URINE COLOR Yellow (YELLOW); URINE GLUCOSE (UA) NORMAL (Normal); URINE LEUKOCYTE ESTERASE NEG Leu/uL (Negative); URINE NITRATE NEGATIVE (NEGATIVE); URINE PROTEIN 1+ mg/dL (NEGATIVE); URINE UROBILINOGEN NORMAL mg/dL (0.2-1.0)
[2017-07-13] MEDS ORDERED: Sodium Chloride 0.9% 250 ML IV ONE (19:42)
[2017-07-13 21:15] LABS: CALCIUM 8.2 mg/dl (8.6-10.4)
[2017-07-13] MEDS: (Novolog) Insulin Aspart, Recombinant 100 u/ml 10 ml vial SC SCH (22:33)
[2017-07-14] MEDS: Azithromycin 500 MG in Sodium Chloride 0.9% 250 ML IVPB SCH ×2 (01:00→10:16)
[2017-07-14] MEDS: (Novolog) Insulin Aspart, Recombinant 100 u/ml 10 ml vial SC SCH ×4 (07:25→21:47)
[2017-07-14 08:27] LABS: BASO % 0.7 % (0.0-2.0); EOS # 0.2 K/uL (0.0-0.7); HEMOGLOBIN 11.2 g/dL (11.0-16.0); LYMPH # 1.9 K/uL (1.0-4.3); LYMPH % 33.7 % (20.0-40.0); MEAN CELL VOLUME 87.8 fL (81.0-99.0); MEAN CORPUSCULAR HGB CONC 33.1 g/dL (33.0-37.0); MEAN PLATELET VOLUME 10.3 fL (7.2-11.7); MONO # 0.8 K/uL (0.0-0.8); MONO % 14.3 % (0.0-10.0); NEUT # 2.7 K/uL (1.8-7.0); NEUT % 48.3 % (50.0-75.0); NRBC % 0.1 % (0.0-2.0); RBC 3.85 Mil/uL (3.80-5.20); RED CELL DISTRIBUTION WIDTH 14.3 % (11.5-14.5); WHITE BLOOD COUNT 5.5 K/uL (4.8-10.8)
[2017-07-14] MEDS: (Lantus) Insulin Glargine, Recombinant SC SCH (09:56)
--- NOTE | 2017-07-14 16:35 | CP.PCM.CON ---
History of Present Illness - History of Present Illness History of Present Illness: 77 y/o female, with history of HTN,diabetes, and hyperlipidemia, presents to the ER complaining of subjective fever, non-productive cough, body aches, and generalized weakness which has been present for the past 4 days. Patient states that she was previously seen by her PCP, , who prescribed her Tamiflu and Zithromycin.However, patient reports that she continues to feel weak at home admitted for persistent flu symptoms r/o pneumonia - Medical History PMH: Dementia, Diabetes, HTN Denies: Chronic Kidney Disease Surgical History: Appendectomy Family History: States: No Known Family Hx Review of Systems - Review of Systems All systems: reviewed and no additional remarkable complaints except - Constitutional Constitutional: As Per HPI - EENT Eyes: absent: As Per HPI, Blind Spots, Blurred Vision, Change in Vision, Decreased Night Vision, Diplopia, Discharge, Dry Eye, Exophthalmos, Floaters, Irritation, Itchy Eyes, Loss of Peripheral Vision, Pain, Photophobia, Requires Corrective Lenses, Sees Flashes, Spots in Vision, Tunnel Vision, Other Visual Disturbances, Loss of Vision, Other Ears: absent: As Per HPI, Decreased Hearing, Ear Discharge, Ear Pain, Tinnitus, Abnormal Hearing, Disequilibrium, Dizziness, Other Nose/Mouth/Throat: absent: As Per HPI, Epistaxis, Nasal Congestion, Nasal Discharge, Nasal Obstruction, Nasal Trauma, Nose Pain, Post Nasal Drip, Sinus Pain, Sinus Pressure, Bleeding Gums, Change in Voice, Dental Pain, Dry Mouth, Dysphagia, Halitosis, Hoarsness, Lip Swelling, Mouth Lesions, Mouth Pain, Odynophagia, Sore Throat, Throat Swelling, Tongue Swelling, Facial Pain, Neck Pain, Neck Mass, Other - Breasts Breasts: absent: As Per HPI, Change in Shape, Mass, Pain, Nipple Discharge, Nipple Inversion, Skin Changes, Swelling, Other - Cardiovascular Cardiovascular: absent: As Per HPI, Acrocyanosis, Chest Pain, Chest Pain at Rest , Chest Pain with Activity, Claudication, Diaphoresis, Dyspnea, Dyspnea on Exertion, Edema, Irregular Heart Rhythm, Pain Radiating to Arm/Neck/Jaw, Leg Edema, Leg Ulcers, Lightheadedness, Orthopnea, Palpitations, Paroxysmal Nocturnal Dyspnea, Pedal Edema, Radiating Pain, Rapid Heart Rate, Slow Heart Rate, Syncope, Other - Respiratory Respiratory: As Per HPI - Gastrointestinal Gastrointestinal: absent: As Per HPI, Abdominal Pain, Belching, Bloating, Change in Bowel Habits, Change in Stool Character, Coffee Ground Emesis, Constipation, Cramping, Diarrhea, Dyspepsia, Dysphagia, Early Satiety, Excessive Flatus, Fecal Incontinence, Heartburn, Hematemesis, Hematochezia, Loose Stools, Melena, Nausea, Odynophagia, Temesmus, Vomiting, Other - Genitourinary Genitourinary: absent: As Per HPI, Change in Urinary Stream, Difficulty Urinating, Dysuria, Flank Pain, Hematuria, Pyuria, Nocturia, Urinary Incontinence, Urinary Frequency, Urinary Hesitance, Urinary Urgency, Voiding Freq/Small Amts, Freq UTI, Hx Renal/Bladder Calculi, Hx /Renal Surgery, Bladder Distension, Other - Reproductive: Female Reproductive:Female: absent: As Per HPI, Amenorrhea, Amenorrhea/ Control, Currently Menstual, Cycle <21 Days, Cycle >35 Days, Cycle Variable, Menses 1-7 Days, Menses >/= 8 Days, Menses Variable, Cycle > 4 Weeks Between, No Menses for 6 Months, Heavy Menses, Light Menses, Normal Menses, Spotting Between Cycles , S/P Hysterectomy, Menopausal, Post Menopausal, Premenarche, Abnormal Vaginal Bleeding, Dysmenorrhea, Dyspareunia, Genital Lesions, Genital Pruritis, Pelvic Pain, Prolapse Symptoms, Sexual Dysfunction, Vaginal Discharge, Vaginal Dryness , Vaginal Odor, Vaginal Pruritis, Other - Menstruation Menstruation: absent: As Per HPI, Amenorrhea, Amenorrhea/ Control, Currently Menstual, Cycle <21 Days, Cycle >35 Days, Cycle Variable, Menses 1-7 Days, Menses >/= 8 Days, Menses Variable, Cycle > 4 Weeks Between, No Menses for 6 Months, Heavy Menses, Light Menses, Normal Menses, Spotting Between Cycles , S/P Hysterectomy, Menopausal, Post Menopausal, Premenarche, Abnormal Vaginal Bleeding, Dysmenorrhea, Other - Musculoskeletal Musculoskeletal: absent: As Per HPI, Abnormal Gait, Arthralgias, Atrophy, Back Pain, Deformity, Joint Swelling, Limited Range of Motion, Loss of Height, Muscle Cramps, Muscle Weakness, Myalgias, Neck Pain, Numbness, Radiating Pain into Limb, Stiffness, Tingling, Other - Integumentary Integumentary: absent: As Per HPI, Acne, Alopecia, Bleeding Lesions, Change in Hair, Change in Nails, Change in Pigmentation, Changing Lesions, Dry Skin, Erythema, Furuncle, Hirsutism, Lesions, New Lesions, Non-Healing Lesions, Photosensitivity, Pruritus, Rash, Skin Pain, Skin Ulcer, Sores, Striae, Swelling , Unusual Bruising, Wounds, Jaundice, Other - Neurological Neurological: absent: As Per HPI, Abnormal Gait, Abnormal Hearing, Abnormal Movements, Abnormal Speech, Behavioral Changes, Burning Sensations, Confusion, Convulsions, Disequilibrium, Dizziness, Numbness, Focal Weakness, Frequent Falls , Headaches, Lack of Coordination, Loss of Vision, Memory Loss, Paresthesias, Radicular Pain, Restless Legs, Sensory Deficit, Syncope, Tingling, Tremor, Vertigo, Weakness, Other Visual Disturbances, Other - Psychiatric Psychiatric: absent: As Per HPI, Abnormal Sleep Pattern, Anhedonia, Anxiety, Auditory Hallucinations, Behavioral Changes, Change in Appetite, Change in Libido, Confusion, Depression, Difficulty Concentrating, Hallucinations, Homicidal Ideation, Hopelessness, Irritability, Memory Loss, Mood Swings, Panic Attacks, Paranoia, Suicidal Ideation, Visual Hallucinations, Tactile Hallucinations, Other - Endocrine Endocrine: absent: As Per HPI, Change in Body Appearance, Change in Libido, Cold Intolorance, Deepening of Voice, Excessive Sweating, Fatigue, Flushing, Heat Intolorance, Increase in Ring/Shoe/Hat Size, Palpitations, Polydipsia, Polyphagia, Polyuria, Other - Hematologic/Lymphatic Hematologic: absent: As Per HPI, Easy Bleeding, Easy Bruising, Lymphadenopathy, Other Past Patient History - Infectious Disease Hx of Infectious Diseases: None - Past Medical History & Family History Past Medical History?: Yes - Past Social History Smoking Status: Never Smoked - CARDIAC Hx Cardiac Disorders: Yes Hx Hypertension: Yes - PULMONARY Hx Respiratory Disorders: No - NEUROLOGICAL Hx Neurological Disorder: Yes Hx Dementia: Yes - HEENT Hx HEENT Problems: Yes Hx Cataracts: Yes (both eyes) - RENAL Hx Chronic Kidney Disease: No - ENDOCRINE/METABOLIC Hx Endocrine Disorders: Yes Hx Diabetes Mellitus Type 2: Yes - HEMATOLOGICAL/ONCOLOGICAL Hx Blood Disorders: No - INTEGUMENTARY Hx Dermatological Problems: No - MUSCULOSKELETAL/RHEUMATOLOGICAL Hx Musculoskeletal Disorders: No Hx Falls: No - GASTROINTESTINAL Hx Gastrointestinal Disorders: No - GENITOURINARY/GYNECOLOGICAL Hx Genitourinary Disorders: No - PSYCHIATRIC Hx Psychophysiologic Disorder: No Hx Substance Use: No - SURGICAL HISTORY Hx Surgeries: Yes Hx Appendectomy: Yes - ANESTHESIA Hx Anesthesia: Yes Hx Anesthesia Reactions: No Hx Malignant Hyperthermia: No Has any member of the family had a problem w/ anesthesia?: No Meds Allergies/Adverse Reactions: Allergies Allergy/AdvReac Type Severity Reaction Status Date / Time No Known Allergies Allergy Verified 07/13/17 14:25 - Medications Medications: Current Medications Amlodipine Besylate (Norvasc) 5 mg PO DAILY [facility] Last Admin: 07/14/17 09:56 Dose: 5 mg Carvedilol (Coreg) 6.25 mg PO BID [facility] Last Admin: 07/14/17 10:49 Dose: 6.25 mg Glimepiride (Amaryl) 4 mg PO DAILY [facility] Last Admin: 07/14/17 09:56 Dose: 4 mg Heparin Sodium (Porcine) (Heparin) 5,000 units SC Q12 [facility] Last Admin: 07/14/17 09:55 Dose: 5,000 units Hydrochlorothiazide (Hydrodiuril) 25 mg PO DAILY [facility] Last Admin: 07/14/17 09:56 Dose: 25 mg Azithromycin 500 mg/ Sodium (Chloride) 250 mls @ 250 mls/hr IVPB DAILY [facility] Last Admin: 07/14/17 10:16 Dose: 250 mls/hr Insulin Aspart (Novolog) 0 unit SC ACHS [facility] PRN Reason: Protocol Last Admin: 07/14/17 12:05 Dose: 5 unit Insulin Glargine (Lantus) 30 unit SC DAILY [facility] Last Admin: 07/14/17 09:56 Dose: 30 units Losartan Potassium (Cozaar) 50 mg PO DAILY [facility] Last Admin: 07/14/17 09:56 Dose: 50 mg Oseltamivir Phosphate (Tamiflu Cap) 75 mg PO BID [facility] Stop: 07/19/17 00:01 Last Admin: 07/14/17 09:55 Dose: 75 mg Rivastigmine (Exelon 4.6 Mg/24 Hr Patch) 1 patch TD DAILY [facility] Last Admin: 07/14/17 09:56 Dose: 1 patch Rosuvastatin Calcium (Crestor) 5 mg PO HS [facility] Last Admin: 07/13/17 22:32 Dose: 5 mg Sitagliptin Phosphate (Januvia) 100 mg PO DAILY [facility] Last Admin: 07/14/17 09:56 Dose: 100 mg Physical Exam - Constitutional Appears: Non-toxic, Chronically Ill - Head Exam Head Exam: NORMOCEPHALIC - Eye Exam Eye Exam: PERRL. absent: Scleral icterus - ENT Exam ENT Exam: Mucous Membranes Dry - Neck Exam Neck exam: Negative for: Lymphadenopathy - Respiratory Exam Respiratory Exam: Decreased Breath Sounds, Rhonchi - Cardiovascular Exam Cardiovascular Exam: REGULAR RHYTHM, +S1, +S2 - GI/Abdominal Exam GI & Abdominal Exam: Diminished Bowel Sounds, Soft. absent: Tenderness - Rectal Exam Rectal Exam: Deferred - Exam Exam: NORMAL INSPECTION - Extremities Exam Extremities exam: Negative for: pedal edema - Back Exam Back exam: absent: CVA tenderness (L), CVA tenderness (R) - Neurological Exam Neurological exam: Alert, CN II-XII Intact, Oriented x3, Reflexes Normal - Psychiatric Exam Psychiatric exam: Normal Mood - Skin Skin Exam: Dry Results - Vital Signs Recent Vital Signs: Last Vital Signs Temp 98.4 F 07/14/17 08:08 Pulse 65 07/14/17 08:08 Resp 18 07/14/17 08:08 BP 118/63 07/14/17 08:08 Pulse Ox 96 07/14/17 08:08 - Labs Result Diagrams: 07/14/17 07:13 07/13/17 21:00 Labs: Laboratory Results - last 24 hr 07/13/17 07/13/17 07/13/17 16:44 16:49 21:00 WBC RBC Hgb Hct MCV MCH MCHC RDW Plt Count MPV Neut % (Auto) Lymph % (Auto) [place] % (Auto) Eos % (Auto) Baso % (Auto) Neut # (Auto) Lymph # (Auto) [place] # (Auto) Eos # (Auto) Baso # (Auto) Sodium 132 Potassium 3.9 Chloride 95 L Carbon Dioxide 27 Anion Gap 13 BUN 17 Creatinine 1.2 Est GFR ( Amer) 53 Est GFR (Non-Af Amer) 44 POC Glucose (mg/dL) 194 H Random Glucose 183 H Calcium 8.2 L Urine Color Yellow Urine Clarity Hazy Urine pH 5.0 Ur Specific [place] 1.020 Urine Protein 1+ H Urine Glucose (UA) Normal Urine Ketones Negative Urine Blood Negative Urine Nitrate Negative Urine Bilirubin Negative Urine Urobilinogen Normal Ur Leukocyte Esterase Neg Urine WBC (Auto) 4 Urine RBC (Auto) 3 Ur Squamous Epith Cells 2 Hyaline Casts 11-20 H 07/13/17 07/14/17 07/14/17 21:27 06:29 07:13 WBC 5.5 RBC 3.85 Hgb 11.2 Hct 33.8 L MCV 87.8 MCH 29.0 MCHC 33.1 RDW 14.3 Plt Count 234 MPV 10.3 Neut % (Auto) 48.3 L Lymph % (Auto) 33.7 [place] % (Auto) 14.3 H Eos % (Auto) 3.0 Baso % (Auto) 0.7 Neut # (Auto) 2.7 Lymph # (Auto) 1.9 [place] # (Auto) 0.8 Eos # (Auto) 0.2 Baso # (Auto) 0.0 Sodium Potassium Chloride Carbon Dioxide Anion Gap BUN Creatinine Est GFR ( Amer) Est GFR (Non-Af Amer) POC Glucose (mg/dL) 325 H 114 H Random Glucose Calcium Urine Color Urine Clarity Urine pH Ur Specific [place] Urine Protein Urine Glucose (UA) Urine Ketones Urine Blood Urine Nitrate Urine Bilirubin Urine Urobilinogen Ur Leukocyte Esterase Urine WBC (Auto) Urine RBC (Auto) Ur Squamous Epith Cells Hyaline Casts 07/14/17 11:26 WBC RBC Hgb Hct MCV MCH MCHC RDW Plt Count MPV Neut % (Auto) Lymph % (Auto) [place] % (Auto) Eos % (Auto) Baso % (Auto) Neut # (Auto) Lymph # (Auto) [place] # (Auto) Eos # (Auto) Baso # (Auto) Sodium Potassium Chloride Carbon Dioxide Anion Gap BUN Creatinine Est GFR ( Amer) Est GFR (Non-Af Amer) POC Glucose (mg/dL) 350 H Random Glucose Calcium Urine Color Urine Clarity Urine pH Ur Specific [place] Urine Protein Urine Glucose (UA) Urine Ketones Urine Blood Urine Nitrate Urine Bilirubin Urine Urobilinogen Ur Leukocyte Esterase Urine WBC (Auto) Urine RBC (Auto) Ur Squamous Epith Cells Hyaline Casts Assessment & Plan (1) Dehydration Status: Acute (2) Influenza Status: Acute (3) Diabetes mellitus type 2 in nonobese Status: Acute Priority: High (4) Hypertension Status: Acute Priority: High - Assessment and Plan (Free Text) Assessment: acute influenza with dehydration in a 77 yo female with comorbidities cont hydration, tamiflu , nutritional support
--- NOTE | 2017-07-14 17:39 | CP.PCM.HP ---
History of Present Illness - History of Present Illness History of Present Illness: 77 years old female with PMHx significant for Type II DM, HTN and Hyperlipidemia presents complaining of weakness and fever. Initial evaluation showed patient with severe Dehydration and Pre Renal azotemia. Present on Admission - Present on Admission Any Indicators Present on Admission: Yes History of Uncontrolled Diabetes: Yes Review of Systems - Constitutional Constitutional: Fatigue, Fever, Malaise, Weakness - EENT Nose/Mouth/Throat: Dry Mouth - Respiratory Respiratory: Cough, Dyspnea on Exertion - Musculoskeletal Musculoskeletal: Muscle Weakness, Myalgias Past Patient History - Infectious Disease Hx of Infectious Diseases: None - Past Medical History & Family History Past Medical History?: Yes - Past Social History Smoking Status: Never Smoked - CARDIAC Hx Cardiac Disorders: Yes Hx Hypertension: Yes - PULMONARY Hx Respiratory Disorders: No - NEUROLOGICAL Hx Neurological Disorder: Yes Hx Dementia: Yes - HEENT Hx HEENT Problems: Yes Hx Cataracts: Yes (both eyes) - RENAL Hx Chronic Kidney Disease: No - ENDOCRINE/METABOLIC Hx Endocrine Disorders: Yes Hx Diabetes Mellitus Type 2: Yes - HEMATOLOGICAL/ONCOLOGICAL Hx Blood Disorders: No - INTEGUMENTARY Hx Dermatological Problems: No - MUSCULOSKELETAL/RHEUMATOLOGICAL Hx Musculoskeletal Disorders: No Hx Falls: No - GASTROINTESTINAL Hx Gastrointestinal Disorders: No - GENITOURINARY/GYNECOLOGICAL Hx Genitourinary Disorders: No - PSYCHIATRIC Hx Psychophysiologic Disorder: No Hx Substance Use: No - SURGICAL HISTORY Hx Surgeries: Yes Hx Appendectomy: Yes - ANESTHESIA Hx Anesthesia: Yes Hx Anesthesia Reactions: No Hx Malignant Hyperthermia: No Has any member of the family had a problem w/ anesthesia?: No Meds Allergies/Adverse Reactions: Allergies Allergy/AdvReac Type Severity Reaction Status Date / Time No Known Allergies Allergy Verified 07/13/17 14:25 Physical Exam - Constitutional Appears: Chronically Ill - Head Exam Head Exam: ATRAUMATIC, NORMAL INSPECTION, NORMOCEPHALIC - Eye Exam Eye Exam: EOMI, Normal appearance, PERRL - ENT Exam ENT Exam: Mucous Membranes Dry - Neck Exam Neck exam: Positive for: Full Rom, Normal Inspection - Respiratory Exam Respiratory Exam: Clear to Auscultation Bilateral, NORMAL BREATHING PATTERN - Cardiovascular Exam Cardiovascular Exam: REGULAR RHYTHM, +S1, +S2 - GI/Abdominal Exam GI & Abdominal Exam: Normal Bowel Sounds, Soft - Extremities Exam Extremities exam: Positive for: full ROM, normal inspection - Back Exam Back exam: NORMAL INSPECTION - Neurological Exam Neurological exam: Alert, CN II-XII Intact, Oriented x3, Reflexes Normal - Psychiatric Exam Psychiatric exam: Normal Affect, Normal Mood - Skin Skin Exam: Dry Results - Vital Signs Recent Vital Signs: Last Vital Signs Temp 98.5 F 07/14/17 15:00 Pulse 78 07/14/17 15:00 Resp 20 07/14/17 15:00 BP 110/66 07/14/17 15:00 Pulse Ox 96 07/14/17 15:00 - Labs Result Diagrams: 07/14/17 07:13 07/13/17 21:00 Labs: Laboratory Results - last 24 hr 07/13/17 07/13/17 07/14/17 21:00 21:27 06:29 WBC RBC Hgb Hct MCV MCH MCHC RDW Plt Count MPV Neut % (Auto) Lymph % (Auto) [place] % (Auto) Eos % (Auto) Baso % (Auto) Neut # (Auto) Lymph # (Auto) [place] # (Auto) Eos # (Auto) Baso # (Auto) Sodium 132 Potassium 3.9 Chloride 95 L Carbon Dioxide 27 Anion Gap 13 BUN 17 Creatinine 1.2 Est GFR ( Amer) 53 Est GFR (Non-Af Amer) 44 POC Glucose (mg/dL) 325 H 114 H Random Glucose 183 H Calcium 8.2 L 07/14/17 07/14/17 07/14/17 07:13 11:26 17:13 WBC 5.5 RBC 3.85 Hgb 11.2 Hct 33.8 L MCV 87.8 MCH 29.0 MCHC 33.1 RDW 14.3 Plt Count 234 MPV 10.3 Neut % (Auto) 48.3 L Lymph % (Auto) 33.7 [place] % (Auto) 14.3 H Eos % (Auto) 3.0 Baso % (Auto) 0.7 Neut # (Auto) 2.7 Lymph # (Auto) 1.9 [place] # (Auto) 0.8 Eos # (Auto) 0.2 Baso # (Auto) 0.0 Sodium Potassium Chloride Carbon Dioxide Anion Gap BUN Creatinine Est GFR ( Amer) Est GFR (Non-Af Amer) POC Glucose (mg/dL) 350 H 258 H Random Glucose Calcium Assessment & Plan (1) Dehydration Assessment and Plan: Continue IV fluids. Status: Acute Priority: High (2) Influenza Assessment and Plan: Continue same treatment. Status: Acute Priority: High (3) Diabetes mellitus type 2 in nonobese Assessment and Plan: Accuchek with Insuline coverage ACHS Status: Acute Priority: High (4) Hypertension Assessment and Plan: Continue same treatment. Status: Acute Priority: High
[2017-07-15 07:48] LABS: CALCIUM 8.7 mg/dl (8.6-10.4)
[2017-07-15] MEDS: (Novolog) Insulin Aspart, Recombinant 100 u/ml 10 ml vial SC SCH ×4 (08:24→21:49)
[2017-07-15] MEDS: Azithromycin 500 MG in Sodium Chloride 0.9% 250 ML IVPB SCH (09:45)
[2017-07-15] MEDS: (Lantus) Insulin Glargine, Recombinant SC SCH (09:47)
--- NOTE | 2017-07-15 18:38 | CP.PCM.PN ---
Subjective - Date & Time of Evaluation Date of Evaluation: 07/15/17 Time of Evaluation: 09:00 - Subjective Subjective: afebrile slowly improving renal function improved cont tamiflu cultures neg thus far Objective - Vital Signs/Intake and Output Vital Signs (last 24 hours): Temp Pulse Resp BP Pulse Ox 98.3 F 64 20 116/67 96 07/15/17 15:00 07/15/17 15:00 07/15/17 15:00 07/15/17 15:00 07/15/17 15:00 Intake and Output: 07/15/17 07/15/17 06:59 18:59 Intake Total 730 Balance 730 - Medications Medications: Current Medications Amlodipine Besylate (Norvasc) 5 mg PO DAILY [facility] Last Admin: 07/15/17 09:45 Dose: 5 mg Carvedilol (Coreg) 6.25 mg PO BID [facility] Last Admin: 07/15/17 17:44 Dose: 6.25 mg Glimepiride (Amaryl) 4 mg PO DAILY [facility] Last Admin: 07/15/17 09:46 Dose: 4 mg Heparin Sodium (Porcine) (Heparin) 5,000 units SC Q12 [facility] Last Admin: 07/15/17 09:47 Dose: 5,000 units Hydrochlorothiazide (Hydrodiuril) 25 mg PO DAILY [facility] Last Admin: 07/15/17 09:46 Dose: 25 mg Azithromycin 500 mg/ Sodium (Chloride) 250 mls @ 250 mls/hr IVPB DAILY [facility] Last Admin: 07/15/17 09:45 Dose: 250 mls/hr Insulin Aspart (Novolog) 0 unit SC ACHS [facility] PRN Reason: Protocol Last Admin: 07/15/17 17:44 Dose: 1 unit Insulin Glargine (Lantus) 30 unit SC DAILY [facility] Last Admin: 07/15/17 09:47 Dose: 30 units Losartan Potassium (Cozaar) 50 mg PO DAILY [facility] Last Admin: 07/15/17 09:45 Dose: 50 mg Oseltamivir Phosphate (Tamiflu Cap) 75 mg PO BID [facility] Stop: 07/19/17 00:01 Last Admin: 07/15/17 17:44 Dose: 75 mg Rivastigmine (Exelon 4.6 Mg/24 Hr Patch) 1 patch TD DAILY [facility] Last Admin: 07/15/17 09:47 Dose: 1 patch Rosuvastatin Calcium (Crestor) 5 mg PO HS [facility] Last Admin: 07/14/17 21:28 Dose: 5 mg Sitagliptin Phosphate (Januvia) 100 mg PO DAILY [facility] Last Admin: 07/15/17 09:46 Dose: 100 mg - Labs Labs: 07/14/17 07:13 07/15/17 06:27 - Constitutional Appears: Non-toxic, Chronically Ill - Head Exam Head Exam: NORMOCEPHALIC - Eye Exam Eye Exam: PERRL - ENT Exam ENT Exam: Mucous Membranes Dry - Neck Exam Neck Exam: absent: Lymphadenopathy - Respiratory Exam Respiratory Exam: Decreased Breath Sounds - Cardiovascular Exam Cardiovascular Exam: REGULAR RHYTHM - GI/Abdominal Exam GI & Abdominal Exam: Distended - Rectal Exam Rectal Exam: Deferred - Exam Exam: NORMAL INSPECTION Assessment and Plan (1) Dehydration Status: Acute (2) Influenza Status: Acute (3) Diabetes mellitus type 2 in nonobese Status: Acute (4) Hypertension Status: Acute
--- NOTE | 2017-07-15 19:47 | CP.PCM.PN ---
Subjective - Date & Time of Evaluation Date of Evaluation: 07/15/17 Time of Evaluation: 19:44 - Subjective Subjective: Afebrile, in no apparent distress. Objective - Vital Signs/Intake and Output Vital Signs (last 24 hours): Temp Pulse Resp BP Pulse Ox 98.3 F 64 20 116/67 96 07/15/17 15:00 07/15/17 15:00 07/15/17 15:00 07/15/17 15:00 07/15/17 15:00 Intake and Output: 07/15/17 07/16/17 18:59 06:59 Intake Total 730 Balance 730 - Medications Medications: Current Medications Amlodipine Besylate (Norvasc) 5 mg PO DAILY [facility] Last Admin: 07/15/17 09:45 Dose: 5 mg Carvedilol (Coreg) 6.25 mg PO BID [facility] Last Admin: 07/15/17 17:44 Dose: 6.25 mg Glimepiride (Amaryl) 4 mg PO DAILY [facility] Last Admin: 07/15/17 09:46 Dose: 4 mg Heparin Sodium (Porcine) (Heparin) 5,000 units SC Q12 [facility] Last Admin: 07/15/17 09:47 Dose: 5,000 units Hydrochlorothiazide (Hydrodiuril) 25 mg PO DAILY [facility] Last Admin: 07/15/17 09:46 Dose: 25 mg Azithromycin 500 mg/ Sodium (Chloride) 250 mls @ 250 mls/hr IVPB DAILY [facility] Last Admin: 07/15/17 09:45 Dose: 250 mls/hr Insulin Aspart (Novolog) 0 unit SC ACHS [facility] PRN Reason: Protocol Last Admin: 07/15/17 17:44 Dose: 1 unit Insulin Glargine (Lantus) 30 unit SC DAILY [facility] Last Admin: 07/15/17 09:47 Dose: 30 units Losartan Potassium (Cozaar) 50 mg PO DAILY [facility] Last Admin: 07/15/17 09:45 Dose: 50 mg Oseltamivir Phosphate (Tamiflu Cap) 75 mg PO BID [facility] Stop: 07/19/17 00:01 Last Admin: 07/15/17 17:44 Dose: 75 mg Rivastigmine (Exelon 4.6 Mg/24 Hr Patch) 1 patch TD DAILY [facility] Last Admin: 07/15/17 09:47 Dose: 1 patch Rosuvastatin Calcium (Crestor) 5 mg PO HS [facility] Last Admin: 07/14/17 21:28 Dose: 5 mg Sitagliptin Phosphate (Januvia) 100 mg PO DAILY [facility] Last Admin: 07/15/17 09:46 Dose: 100 mg - Labs Labs: 07/14/17 07:13 07/15/17 06:27 - Constitutional Appears: Well, Non-toxic - Head Exam Head Exam: ATRAUMATIC, NORMAL INSPECTION, NORMOCEPHALIC - Eye Exam Eye Exam: EOMI, Normal appearance Pupil Exam: PERRL - Neck Exam Neck Exam: Full ROM - Respiratory Exam Respiratory Exam: Clear to Ausculation Bilateral, NORMAL BREATHING PATTERN - Cardiovascular Exam Cardiovascular Exam: REGULAR RHYTHM, +S1, +S2 - GI/Abdominal Exam GI & Abdominal Exam: Soft, Normal Bowel Sounds - Extremities Exam Extremities Exam: Full ROM, Normal Capillary Refill, Normal Inspection - Neurological Exam Neurological Exam: Alert, Awake, CN II-XII Intact, Normal Gait, Oriented x3 - Psychiatric Exam Psychiatric exam: Normal Affect, Normal Mood - Skin Skin Exam: Intact, Normal Color Assessment and Plan (1) Influenza Assessment & Plan: Continue same treatment. Status: Acute (2) Dehydration Assessment & Plan: Continue same treatment. Status: Resolved (3) Diabetes mellitus type 2 in nonobese Assessment & Plan: Continue same treatment. Status: Acute (4) Hypertension Assessment & Plan: Continue same treatment. Status: Acute
[2017-07-16 03:25] VITALS: PULSE 67; RESP 18
[2017-07-16] MEDS: (Novolog) Insulin Aspart, Recombinant 100 u/ml 10 ml vial SC SCH ×2 (08:08→12:34)
[2017-07-16 08:57] VITALS: BP 123/68; TEMP 98.6; O2SAT 98
[2017-07-16] MEDS: (Lantus) Insulin Glargine, Recombinant SC SCH (09:44)
[2017-07-16] MEDS: Azithromycin 500 MG in Sodium Chloride 0.9% 250 ML IVPB SCH (10:41)
[2017-07-16 11:43] LABS: BASO % 0.7 % (0.0-2.0); EOS # 0.1 K/uL (0.0-0.7); EOS % 2.2 % (0.0-4.0); HEMOGLOBIN 11.6 g/dL (11.0-16.0); LYMPH % 40.1 % (20.0-40.0); MEAN CELL VOLUME 86.9 fL (81.0-99.0); MEAN CORPUSCULAR HEMOGLOBIN 28.9 pg (27.0-31.0); MEAN CORPUSCULAR HGB CONC 33.3 g/dL (33.0-37.0); MEAN PLATELET VOLUME 10.8 fL (7.2-11.7); MONO # 0.5 K/uL (0.0-0.8); MONO % 8.9 % (0.0-10.0); NEUT # 2.4 K/uL (1.8-7.0); NEUT % 48.1 % (50.0-75.0); WHITE BLOOD COUNT 5.1 K/uL (4.8-10.8)
[2017-07-16 12:01] LABS: CALCIUM 9.4 mg/dl (8.6-10.4)
--- NOTE | 2017-07-16 17:22 | CP.PCM.PN ---
Subjective - Date & Time of Evaluation Date of Evaluation: 07/16/17 Time of Evaluation: 13:00 - Subjective Subjective: Patient seen today , states feels better, denies any fever, chills, cough or congestion afebrile BC- negative so far Objective - Vital Signs/Intake and Output Vital Signs (last 24 hours): Temp Pulse Resp BP Pulse Ox 98.6 F 67 18 123/68 98 07/16/17 08:56 07/16/17 08:56 07/16/17 08:56 07/16/17 08:56 07/16/17 08:56 Intake and Output: 07/16/17 07/16/17 06:59 18:59 Intake Total 120 250 Balance 120 250 - Medications Medications: Current Medications Amlodipine Besylate (Norvasc) 5 mg PO DAILY [facility] Last Admin: 07/16/17 09:43 Dose: 5 mg Carvedilol (Coreg) 6.25 mg PO BID [facility] Last Admin: 07/16/17 09:43 Dose: 6.25 mg Glimepiride (Amaryl) 4 mg PO DAILY [facility] Last Admin: 07/16/17 09:43 Dose: 4 mg Heparin Sodium (Porcine) (Heparin) 5,000 units SC Q12 [facility] Last Admin: 07/16/17 09:43 Dose: 5,000 units Hydrochlorothiazide (Hydrodiuril) 25 mg PO DAILY [facility] Last Admin: 07/16/17 09:43 Dose: 25 mg Azithromycin 500 mg/ Sodium (Chloride) 250 mls @ 250 mls/hr IVPB DAILY [facility] Last Admin: 07/16/17 10:41 Dose: 250 mls/hr Insulin Aspart (Novolog) 0 unit SC [facility] PRN Reason: Protocol Last Admin: 07/16/17 12:34 Dose: 3 unit Insulin Glargine (Lantus) 30 unit SC DAILY [facility] Last Admin: 07/16/17 09:44 Dose: 30 units Losartan Potassium (Cozaar) 50 mg PO DAILY [facility] Last Admin: 07/16/17 09:43 Dose: 50 mg Oseltamivir Phosphate (Tamiflu Cap) 75 mg PO BID [facility] Stop: 07/19/17 00:01 Last Admin: 07/16/17 09:43 Dose: 75 mg Rivastigmine (Exelon 4.6 Mg/24 Hr Patch) 1 patch TD DAILY [facility] Last Admin: 07/16/17 09:43 Dose: 1 patch Rosuvastatin Calcium (Crestor) 5 mg PO HS [facility] Last Admin: 07/15/17 22:02 Dose: 5 mg Sitagliptin Phosphate (Januvia) 100 mg PO DAILY [facility] Last Admin: 07/16/17 09:43 Dose: 100 mg - Labs Labs: 07/16/17 11:37 07/16/17 11:37 Assessment and Plan - Assessment and Plan (Free Text) Assessment: A/P 77 y/o female, with history of HTN,diabetes, and hyperlipidemia, admitted with fever, non-productive cough, body aches, + influenza patient started on tamiflu and clinically improved D/W Dr. Chen , cleared fro d/c from ID standpoint D/w Dr. Centeno , stable for discharge home to and f/u with Dr. Centeno office in 1 week discharge plan discussed with patient who understands and agrees with plan pateint instructed to returns to ED if symptoms returns
--- NOTE | 2017-07-16 18:54 | CP.PCM.DIS ---
Provider - Provider Date of Admission: 07/13/17 15:56 Attending physician: Иван Centeno MD Time Spent in preparation of Discharge (in minutes): 30 Diagnosis - Discharge Diagnosis (1) Influenza Status: Resolved Priority: High (2) Dehydration Status: Resolved Priority: High (3) Diabetes mellitus type 2 in nonobese Status: Chronic Priority: High (4) Hypertension Status: Chronic Priority: High Hospital Course - Lab Results Lab Results: Micro Results 07/16/17 11:06 Sputum Gram Stain - Final 07/13/17 21:15 Blood Blood Culture - Preliminary NO GROWTH AFTER 48 HOURS 07/13/17 20:45 Blood Blood Culture - Preliminary NO GROWTH AFTER 48 HOURS 07/13/17 17:47 Urine,Clean Catch Urine Culture - Final No Growth (<1,000 CFU/ML) Most Recent Lab Values WBC 5.1 K/uL (4.8-10.8) 07/16/17 11:37 RBC 4.00 Mil/uL (3.80-5.20) 07/16/17 11:37 Hgb 11.6 g/dL (11.0-16.0) 07/16/17 11:37 Hct 34.8 % (34.0-47.0) 07/16/17 11:37 MCV 86.9 fL (81.0-99.0) 07/16/17 11:37 MCH 28.9 pg (27.0-31.0) 07/16/17 11:37 MCHC 33.3 g/dL (33.0-37.0) 07/16/17 11:37 RDW 14.0 % (11.5-14.5) 07/16/17 11:37 Plt Count 260 K/uL (130-400) 07/16/17 11:37 MPV 10.8 fL (7.2-11.7) 07/16/17 11:37 Neut % (Auto) 48.1 % (50.0-75.0) L 07/16/17 11:37 Lymph % (Auto) 40.1 % (20.0-40.0) H 07/16/17 11:37 [place] % (Auto) 8.9 % (0.0-10.0) 07/16/17 11:37 Eos % (Auto) 2.2 % (0.0-4.0) 07/16/17 11:37 Baso % (Auto) 0.7 % (0.0-2.0) 07/16/17 11:37 Neut # (Auto) 2.4 K/uL (1.8-7.0) 07/16/17 11:37 Lymph # (Auto) 2.0 K/uL (1.0-4.3) 07/16/17 11:37 [place] # (Auto) 0.5 K/uL (0.0-0.8) 07/16/17 11:37 Eos # (Auto) 0.1 K/uL (0.0-0.7) 07/16/17 11:37 Baso # (Auto) 0.0 K/uL (0.0-0.2) 07/16/17 11:37 Sodium 136 mmol/L (132-148) 07/16/17 11:37 Potassium 4.1 mmol/L (3.6-5.2) 07/16/17 11:37 Chloride 98 mmol/L (98-107) 07/16/17 11:37 Carbon Dioxide 27 mmol/L (22-30) 07/16/17 11:37 Anion Gap 15 (10-20) 07/16/17 11:37 BUN 26 mg/dL (7-17) H 07/16/17 11:37 Creatinine 1.1 mg/dL (0.7-1.2) 07/16/17 11:37 Est GFR ( Amer) 59 07/16/17 11:37 Est GFR (Non-Af Amer) 48 07/16/17 11:37 POC Glucose (mg/dL) 181 mg/dL (65-110) H 07/16/17 17:11 Random Glucose 337 mg/dL (65-105) H 07/16/17 11:37 Calcium 9.4 mg/dl (8.6-10.4) 07/16/17 11:37 Total Bilirubin 0.4 mg/dL (0.2-1.3) 07/13/17 15:05 AST 42 U/L (14-36) H D 07/13/17 15:05 ALT 33 U/L (9-52) 07/13/17 15:05 Alkaline Phosphatase 69 U/L (38-126) 02/07/18 15:05 Total Protein 6.8 g/dL (6.3-8.3) 07/13/17 15:05 Albumin 3.8 g/dL (3.5-5.0) 07/13/17 15:05 Globulin 3.0 gm/dL (2.2-3.9) 07/13/17 15:05 Albumin/Globulin Ratio 1.2 (1.0-2.1) 07/13/17 15:05 Lipase 46 U/L (23-300) 07/13/17 15:05 Urine Color Yellow (YELLOW) 07/13/17 16:44 Urine Clarity Hazy (Clear) 07/13/17 16:44 Urine pH 5.0 (5.0-8.0) 07/13/17 16:44 Ur Specific [place] 1.020 (1.003-1.030) 07/13/17 16:44 Urine Protein 1+ mg/dL (NEGATIVE) H 07/13/17 16:44 Urine Glucose (UA) Normal mg/dL (Normal) 07/13/17 16:44 Urine Ketones Negative mg/dL (NEGATIVE) 07/13/17 16:44 Urine Blood Negative (NEGATIVE) 07/13/17 16:44 Urine Nitrate Negative (NEGATIVE) 07/13/17 16:44 Urine Bilirubin Negative (NEGATIVE) 07/13/17 16:44 Urine Urobilinogen Normal mg/dL (0.2-1.0) 07/13/17 16:44 Ur Leukocyte Esterase Neg Jillian/uL (Negative) 07/13/17 16:44 Urine WBC (Auto) 4 /hpf (0-5) 07/13/17 16:44 Urine RBC (Auto) 3 /hpf (0-3) 07/13/17 16:44 Ur Squamous Epith Cells 2 /hpf (0-5) 07/13/17 16:44 Hyaline Casts 11-20 /lpf (0-2) H 07/13/17 16:44 Influenza Typ A,B (EIA) Pos for influenza a (NEGATIVE) H 07/13/17 15:14 Mycoplasma pneumon IgM Negative (NEGATIVE) 07/15/17 06:27 - Hospital Course Hospital Course: 77 years old female with PMHx significant for HTN, Type II DM and Hyperlipidemia. Patient admitted for severe Dehydration and Influenza. Patient responded to IV fluids and Tamiflu and Azithromycin. Patient clinically stable to discharge home. Discharge Exam - Head Exam Head Exam: ATRAUMATIC, NORMAL INSPECTION, NORMOCEPHALIC - Eye Exam Eye Exam: EOMI, Normal appearance - Neck Exam Neck exam: Full Rom, Normal Inspection - Respiratory Exam Respiratory Exam: Clear to PA & Lateral, NORMAL BREATHING PATTERN, UNREMARKABLE - Cardiovascular Exam Cardiovascular Exam: REGULAR RHYTHM, +S1, +S2 - GI/Abdominal Exam GI & Abdominal Exam: Normal Bowel Sounds, Unremarkable - Extremities Exam Extremities exam: full ROM - Back Exam Back exam: NORMAL INSPECTION - Neurological Exam Neurological exam: Alert, CN II-XII Intact, Normal Gait, Oriented x3, Reflexes Normal - Psychiatric Exam Psychiatric exam: Normal Affect, Normal Mood Discharge Plan - Discharge Medications Prescriptions: Azithromycin 250 mg PO DAILY #3 tab Oseltamivir [Tamiflu Cap] 75 mg PO BID #6 cap - Follow Up Plan Condition: FAIR Disposition: HOME/ ROUTINE Instructions: Dehydration (DC), Diabetic Hypoglycemia (DC), Influenza (DC), Acute Nausea and Vomiting (DC) Additional Instructions: Follow up w/ in 1wk [phone]
== END 2017-07-16 19:00 | disposition home or self-care (01) | DRG 641 ==
LOC: C.ER 13:26 → C.9E 15:56 → C.6T 18:00
PROVIDERS: ADMIT Internal Medicine; ATTEND Internal Medicine
DX: E86.0 Dehydration (principal); J11.1 Influenza due to unidentified influenza virus with other respiratory manifestations; E11.9 Type 2 diabetes mellitus without complications; I10 Essential (primary) hypertension; E78.5 Hyperlipidemia, unspecified; F03.90 Unspecified dementia, unspecified severity, without behavioral disturbance, psychotic disturbance, mood disturbance, and anxiety